=== PATIENT | female | born 1985 | race African-American/Black ===

== ENCOUNTER 2016-07-02 19:56 | Emergency (ER) | payer SELFPAY ==
[~2016-07-02] VITALS: Ht 167.6 cm; Wt 72.0 kg
[~2016-07-02 19:56] MED LIST: ALBU8HFA IH
[2016-07-02 20:49] LABS: BASOPHILS % (AUTO) 0.3 % (0.0-2.0); EOSINOPHILS % (AUTO) 1.5 % (1.0-6.0); HEMOGLOBIN 13.8 g/dL (12.0-16.0); LYMPHOCYTES # (AUTO) 2.1 K/uL (1.0-4.8); MEAN CORPUSCULAR HEMOGLOBIN 28.3 pg (26.0-34.0); MEAN CORPUSCULAR HGB CONC 32.2 G/dL (31.0-37.0); MEAN CORPUSCULAR VOLUME 88 fL (80-100); MONOCYTES # (AUTO) 0.5 K/uL (0.1-1.0); MONOCYTES % (AUTO) 4.6 % (2.0-9.0); NEUTROPHILS # (AUTO) 7.4 K/uL (1.8-7.7); NEUTROPHILS % (AUTO) 72.6 % (40.0-70.0); PLATELET COUNT (AUTO) 338 K/uL (150-450); RED BLOOD CELL COUNT(AUTO) 4.89 MIL/uL (4.00-5.20); RED CELL DISTRIBUTION WIDTH 14.5 % (11.5-14.5); WHITE BLOOD COUNT (AUTO) 10.2 K/uL (4.5-11.0)
[2016-07-02 21:00] LABS: ALANINE AMINOTRANSFERASE 14 U/L (12-78); ALBUMIN 4.2 g/dL (3.4-5.0); ANION GAP 10 mmol/L (8-16); ASPARTATE AMINOTRANSFERASE 14 U/L (15-37); BILIRUBIN,TOTAL 0.2 mg/dL (0.1-1.0); CALCIUM, TOTAL 8.6 mg/dL (8.8-10.5); CARBON DIOXIDE 27 mmol/L (22-29); CHLORIDE 102 mmol/L (98-107); CREATININE 1.03 mg/dL (0.60-1.30); GLOMERULAR FILTR. RATE CALC > 60 mL/min (>60); SODIUM SERUM 139 mmol/L (136-145); TOTAL PROTEIN, SERUM 8.1 g/dL (6.4-8.2); UREA NITROGEN, BLOOD 6 mg/dL (7-18)
[2016-07-02 21:19] LABS: POTASSIUM 2.9 mmol/L (3.5-5.1)
[2016-07-02 21:28] LABS: SALICYLATE 4.7 mg/dL (2.8-20.0)
[2016-07-02 21:31] LABS: ACETAMINOPHEN < 2 mcg/mL (10-30)
[2016-07-02] MEDS ORDERED: POTASSIUM CHLORIDE 10% 40 MEQ/30 ML LIQUID UDCUP PO ONE (21:45)
[2016-07-02] MEDS ORDERED: ONDANSETRON HCL 4 MG/2 ML VIAL IM ONE (22:45)
[2016-07-03] MEDS ORDERED: LORazepam 2 MG/ML VIAL IVP ONE (00:15)
[2016-07-03] MEDS ORDERED: SODIUM CHLORIDE 0.9% 1,000 ML IV ONE (00:15)
[2016-07-03 02:12] VITALS: BP 118/70
== END 2016-07-03 02:13 | disposition home or self-care (01) ==
LOC: EMS 20:11
DX: T43.621A Poisoning by amphetamines, accidental (unintentional), initial encounter (principal); F43.20 Adjustment disorder, unspecified; E87.6 Hypokalemia; J45.909 Unspecified asthma, uncomplicated; F12.90 Cannabis use, unspecified, uncomplicated; Y92.89 Other specified places as the place of occurrence of the external cause
CPT/HCPCS: 36415; 80053; 84703; 85025; 93005; 96361; 96372; 96374; 99285; G0480; J2060; J2405; J7030; G0481

== ENCOUNTER 2017-01-26 16:01 | Emergency (ER) | payer SELFPAY ==
[~2017-01-26] VITALS: Ht 167.6 cm; Wt 86.0 kg
[2017-01-26] MEDS ORDERED: ALBUTEROL SULFATE 2.5 MG/0.5 ML NEB SOLUTION NEB ONE (17:30)
[2017-01-26] MEDS ORDERED: DEXAMETHASONE SOD PHOS 4 MG/ML VIAL IM ONE (17:30)
[2017-01-26] MEDS ORDERED: 0.9% SODIUM CHLORIDE 5 ML NEB SOLUTION NEB ONE (17:39)
[2017-01-26 18:52] VITALS: BP 131/68
== END 2017-01-26 19:04 | disposition home or self-care (01) ==
LOC: EMS 16:02
DX: J45.901 Unspecified asthma with (acute) exacerbation (principal); L02.411 Cutaneous abscess of right axilla; L03.111 Cellulitis of right axilla; F12.90 Cannabis use, unspecified, uncomplicated
CPT/HCPCS: 94640; 96372; 99283; J1100; J7613

== ENCOUNTER 2018-12-27 15:27 | Emergency (ER) | payer OTHER ==
[~2018-12-27] VITALS: Ht 167.6 cm; Wt 90.9 kg
[2018-12-27] MEDS ORDERED: IBUP-2271 PO (15:30)
[2018-12-27] MEDS ORDERED: FAMOTIDINE 20 MG TABLET PO STA (16:06)
[2018-12-27] MEDS ORDERED: ALBUTEROL SULFATE HFA 90 MCG/PUFF 8 GM INHALER IH ONE (16:15)
[2018-12-27] MEDS ORDERED: IBUPROFEN 400 MG TABLET PO ONE (16:15)
[2018-12-27] MEDS ORDERED: DiphenhydrAMINE HCL 25 MG CAPSULE PO ONE (16:15)
[2018-12-27] MEDS ORDERED: DEXAMETHASONE 4 MG TABLET PO ONE (16:15)
[2018-12-27 16:47] VITALS: BP 116/56
== END 2018-12-27 17:13 | disposition home or self-care (01) ==
LOC: EMS 15:28
DX: L23.6 Allergic contact dermatitis due to food in contact with the skin (principal); J45.909 Unspecified asthma, uncomplicated; F12.90 Cannabis use, unspecified, uncomplicated; Z79.899 Other long term (current) drug therapy
CPT/HCPCS: 94640; 99284; J8540; J3535

== ENCOUNTER 2019-05-11 21:13 | Emergency (ER) | payer OTHER ==
[~2019-05-11] VITALS: Ht 157.5 cm; Wt 100.0 kg
[~2019-05-11 21:13] MED LIST changes: +IBUP-2271 PO
[2019-05-11 21:41] VITALS: BP 138/71
== END 2019-05-11 22:30 | disposition left against medical advice (07) ==
LOC: EMS 21:13
DX: R42 Dizziness and giddiness (principal); Z53.21 Procedure and treatment not carried out due to patient leaving prior to being seen by health care provider

== ENCOUNTER 2019-09-20 15:24 | Emergency (ER) | payer OTHER ==
[~2019-09-20] VITALS: Ht 167.6 cm; Wt 91.8 kg
[~2019-09-20 15:24] MED LIST changes: -IBUP-2271 PO
[2019-09-20 15:26] VITALS: BP 147/83
== END 2019-09-20 16:10 | disposition home or self-care (01) ==
LOC: EMS 15:24
DX: R05 Cough (principal); M79.10 Myalgia, unspecified site; R68.83 Chills (without fever); J45.909 Unspecified asthma, uncomplicated; Z20.828 Contact with and (suspected) exposure to other viral communicable diseases
CPT/HCPCS: 99283; U0003

== ENCOUNTER 2022-02-09 08:56 | Emergency (ER) | payer OTHER ==
[~2022-02-09] VITALS: Ht 167.6 cm; Wt 86.4 kg
[2022-02-09] MEDS ORDERED: PRED-554 PO (09:04)
[2022-02-09] MEDS ORDERED: CLIN60SO13 TP (09:04)
[2022-02-09] MEDS ORDERED: TRIA15CR49 TP (09:04)
[2022-02-09] MEDS ORDERED: CEPH-558 PO (09:24)
[2022-02-09] MEDS ORDERED: KETOROLAC TROMETHAMINE 30 MG/ML VIAL IM ONE (09:30)
[2022-02-09] MEDS ORDERED: CEPHALEXIN MONOHYDRATE 500 MG CAPSULE PO ONE (09:30)
[2022-02-09] MEDS ORDERED: ACETAMINOPHEN 500 MG TABLET PO ONE (09:30)
[2022-02-09 10:37] VITALS: BP 144/78
== END 2022-02-09 10:40 | disposition home or self-care (01) ==
LOC: EMS 09:01
DX: L03.112 Cellulitis of left axilla (principal); L03.111 Cellulitis of right axilla; F10.20 Alcohol dependence, uncomplicated; J45.909 Unspecified asthma, uncomplicated; L73.2 Hidradenitis suppurativa
CPT/HCPCS: 99283; 96372; J1885

== ENCOUNTER 2022-09-27 19:47 | Emergency (ER) | payer OTHER ==
[~2022-09-27] VITALS: Ht 167.6 cm; Wt 87.3 kg
[~2022-09-27 19:47] MED LIST changes: +CEPH-558 PO; +CLIN60SO13 TP; +PRED-554 PO; +TRIA15CR49 TP
[2022-09-27 19:49] VITALS: BP 168/107; PULSE 63; RESP 16; TEMP 98.5
[2022-09-27] MEDS ORDERED: BACITRACIN 0.9 GM PACKET OINTMENT TP ONE (22:45)
[2022-09-27] MEDS ORDERED: ACETAMINOPHEN 500 MG TABLET PO ONE (22:45)
[2022-09-27] MEDS ORDERED: IBUPROFEN 600 MG TABLET PO ONE (22:45)
== END 2022-09-28 00:36 | disposition home or self-care (01) ==
LOC: EMS 19:47
DX: S81.811A Laceration without foreign body, right lower leg, initial encounter (principal); J45.909 Unspecified asthma, uncomplicated; L73.2 Hidradenitis suppurativa; Z91.013 Allergy to seafood; W22.8XXA Striking against or struck by other objects, initial encounter; Y93.89 Activity, other specified; Y92.89 Other specified places as the place of occurrence of the external cause; Y99.8 Other external cause status
CPT/HCPCS: 99284; Z7502; Z7610